=== PATIENT | male | born 1960 | race African-American/Black ===

== ENCOUNTER 2017-08-31 19:34 | Emergency (ER) | payer SELFPAY ==
[~2017-08-31] VITALS: Ht 170.2 cm; Wt 90.9 kg
[2017-08-31] MEDS ORDERED: PHEN-649 PO (20:03)
[2017-08-31 20:30] VITALS: BP 148/81
== END 2017-08-31 21:20 | disposition home or self-care (01) ==
LOC: EMS 19:36
DX: Z76.0 Encounter for issue of repeat prescription (principal); G40.909 Epilepsy, unspecified, not intractable, without status epilepticus
CPT/HCPCS: 99283

== ENCOUNTER 2020-03-28 10:35 | Emergency (ER) | payer SELFPAY ==
[~2020-03-28] VITALS: Ht 170.2 cm; Wt 94.5 kg
[~2020-03-28 10:35] MED LIST: PHEN-649 PO
[2020-03-28] MEDS ORDERED: IBUPROFEN 800 MG TABLET PO ONE (12:00)
[2020-03-28] MEDS ORDERED: BACITRACIN 0.9 GM PACKET OINTMENT TP ONE (12:00)
[2020-03-28] MEDS ORDERED: PERTUSS(ACELL),DIPH,TET VAC/PF 0.5 ML VIAL IM ONE (12:00)
[2020-03-28] MEDS ORDERED: PROPARACAINE HCL 0.5% 15 ML OPHTHALMIC SOLUTION OS ONE (12:00)
[2020-03-28] MEDS ORDERED: FLUORESCEIN SODIUM 1 MG STRIP OU ONE (12:00)
[2020-03-28 12:37] VITALS: BP 149/99
== END 2020-03-28 13:05 | disposition home or self-care (01) ==
LOC: EMS 10:36
DX: S51.851A Open bite of right forearm, initial encounter (principal); H11.32 Conjunctival hemorrhage, left eye; Y04.1XXA Assault by human bite, initial encounter; Y93.89 Activity, other specified; Y92.89 Other specified places as the place of occurrence of the external cause; Y99.8 Other external cause status
CPT/HCPCS: 72040; 90471; 90715